=== PATIENT | male | born 2000 | race Caucasian/White ===

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

== ENCOUNTER 2021-04-17 13:02 | Emergency (ER) | payer OTHER, SELFPAY ==
[2021-04-17 13:19] VITALS: BP 129/56; PULSE 84; RESP 18; TEMP 36.8; O2SAT 99; BMI 19.5
--- NOTE | 2021-04-17 14:43 | ED_ITS ---
HPI - Back Pain/Injury General Chief Complaint: Back Pain/Injury Stated Complaint: Lower back pain Time Seen by Provider: 04/17/21 14:43 Source: patient Mode of arrival: ambulatory Limitations: no limitations History of Present Illness HPI Narrative: This is a 21-year-old male that presents to the emergency department with left-sided lower back pain that started about 2 weeks ago and has been worsening. He states he is having intermittent stabbing pain localized to his left right lower back, and at times radiating down his left leg to his knee. He states he woke up 1 day and this started, he denies trauma to the area, nothing like this has ever happened before. He states he tried taking ibuprofen, with little to no relief. He denies any urinary symptoms, denies fevers, chills, shortness of breath, chest pain, recent sick contacts, abdominal pain. He denies IV drug use. He denies recent STDs or previous STDs. However he does randomly mentioned during the interview and he wants to get STD tested, he does not state he has had any positive exposures, he also denies penile discharge, or any lesions to the area. MD elicited complaint: back pain Onset (ago): week(s) (Two weeks worse today) Timing: constant and progressively worsening Severity: moderate Similar Symptoms Previously: No Quality: sharp Location: lumbar spine and right lower back Radiation: left upper leg and left leg below the knee Exacerbating factors: movement Relieving factors: none Context: unknown Associated symptoms: denies other symptoms Work related injury: No Related Data Previous Rx's Medication Instructions Recorded cyclobenzaprine 10 mg tablet 10 mg PO Q8H PRN #10 tab 04/17/21 naproxen 500 mg tablet 500 mg PO BID PRN #10 tab 04/17/21 Allergies Allergy/AdvReac Type Severity Reaction Status Date / Time No Known Allergies Allergy Verified 04/17/21 13:18 Review of Systems Review of Systems: Constitutional : No trauma, No Weight loss, No Fever, No Chills, ENT/Mouth : No Hearing loss, No Ear Pain, No Nasal Congestion, No Sinus Pain, No Hoarseness, No sore throat, No Rhinorrhea, No Swallowing Difficulty Cardiovascular : No Chest Pain, No SOB Respiratory : No Cough, No Dyspnea Gastrointestinal : No Nausea, No Vomiting, No Diarrhea, No abdominal Pain, No Hematochezia, No Melena Genitourinary : No Dysuria, No Urinary Frequency, No Hematuria, No Urinary or Bowel Incontinence/retention Musculoskeletal : + Back pain, No neck pain, No joint stiffness, No joint swelling Skin : No Skin Lesions, No rash or signs of infection Neuro : No Weakness, No radiation, No Numbness, No Paresthesias, No headache, no loss of bowel or bladder incontinence, no saddle anesthesia, Focal weakness, No radiation Denies history of IV drug usage. Yes all other systems are reviewed and are negative [facility] Past Medical History Attestation statement: The following information was validated with the patient. Medical History Patient denies significant medical history Social History Social History Alcohol intake: never Advance Directives: No Physical Exam Vital Signs: Vital Signs: Last Vital Signs Temp 98.3 F 04/17/21 13:19 Pulse 84 04/17/21 13:19 Resp 18 04/17/21 13:19 BP 129/56 L 04/17/21 13:19 Pulse Ox 99 04/17/21 13:19 Body Mass Index 19.5 vital signs have been reviewed as normal and appeared to be correct. Blood pressure normal. Heart rate normal. Respiration rate normal. Temperature normal. Oxygen saturation normal. Appearance: Alert. Oriented X3. No acute distress. Head: Normal external exam. Normocephalic. Atraumatic. Eyes: PERRLA. EOMI. Conjunctiva and sclera normal. Eyelids normal. ENT: Pharynx normal. Uvula midline. Moist mucous membranes. Neck: Normal inspection. Neck supple. FROM. No adenopathy. No meningeal signs. CVS: Normal heart rate and rhythm. Heart sound normal. No murmurs noted. Pulses normal throughout. Respiratory: No respiratory distress. Painless inspiration. Breath sounds normal. No wheezes/rales/rhonchi noted. Chest nontender. No accessory muscle usage noted or decreased air movement noted. Abdomen: Soft and nontender. Bowel sounds normal in all 4 quadrants. No distention noted. No organomegaly noted. No visible injury noted. Back: + mild CVA tenderness to left side . +Full/ painful range of motion noted. No obvious deformities, or edema. + Mild para-spinal muscular tenderness from lumbar region to coccyx. + Full/painful ROM in back and lower extremities. 5/5 strength hip extension/flexion, abduction, adduction. Mild Lumbar pain with hip flexion against resistance. Straight leg raise test negative on right; Straight leg raise test negative on left; Reflexes normal ankle and knee bilaterally; EHL motor strength normal bilaterally. No rashes/lesion/induration/fluctuance or signs infection noted. Skin: Skin warm and dry. Normal skin color. Normal skin turgor. No rashes/lesions/lacerations noted. Extremities: No lower extremity edema. No calf tenderness noted. Extremities exhibit normal range of motion. Extremities nontender. Neuro: Oriented X 3. No motor deficit. No sensory deficit. Reflexes normal. Patient has a normal steady gait. Course Course Course Narrative: This is a 21-year-old male that presents to the emergency department with 2 weeks of worsening left lower back pain that radiates down his leg to his knee. He states that the pain is intermittent in nature, will but when it comes on it is a stabbing pain that is 10/10. He denies any urinary symptoms, chest pains, fevers, paresthesias, numbness, tingling, shortness of breath, abdominal pain. However during the interview he does state that he wants to get STD tested, he states he has not had any recent positive exposures, penile discharge, new lesions, or new sexual partners. Patient's physical exam is significant for mild painful range of motion to the hips. He has normal strength. He appears uncomfortable with ambulation, any states that at time he gets shooting pain down his left leg down to his knee. He also has tenderness to palpation the paraspinous muscles in the lumbar region, going down to the coccyx on a left-hand side. He has mild positive CVA tenderness to left hand side. Negative straight leg raise bilaterally. Based off patient's history, physical examination this is most likely musculoskeletal in nature, and does not warrant a need for CT/however he will be tested for gonorrhea and chlamydia. Any urine sample will be sent out. Plan at this time is to discharge the patient with his PCP. He be started on a muscle relaxer, for his pain and he will also be given naproxen for pain if the UA is WNL. MDM - Back Pain/Injury Medical Records Attestation: I reviewed the patient's medical records. Lab Data Attestation: I reviewed the patient's lab results. Labs: Lab Results 04/17/21 Range/Units 15:25 Urine Color YELLOW Urine Appearance HAZY Urine pH 8.0 (5.0-8.0) Ur Specific [place] 1.015 (1.005-1.025) Urine Protein NEG (NEG-TRACE) MG/DL Urine Glucose (UA) NEG (NEG) MG/DL Urine Ketones NEG (NEG) MG/DL Urine Blood NEG (NEG) Urine Nitrite NEG (NEG) Ur Leukocyte Esterase NEG (NEG) Discharge Plan Discharge Clinical Impression: Strain of lumbar region, Sciatica Patient Disposition: Home, Self-Care Instructions: Sciatica (ED), Back Pain (ED) Additional Instructions: Take medications as prescribed Follow-up with your PCP in 2 days If your test for gonorrhea and chlamydia comes back positive you will receive phone call. If not you will not receive a phone call Present to the emergency department if any new or worsening symptoms, or if you lose control of bowel/bladder, if you lose feeling in your legs, or if you dev elop abdominal pain, fevers/chills, chest pain or shortness of breath Prescriptions: New naproxen 500 mg tablet 500 mg PO BID PRN (Reason: pain) Qty: 10 RF: 0 cyclobenzaprine 10 mg tablet 10 mg PO Q8H PRN (Reason: Muscle spasm) Qty: 10 RF: 0 Stand Alone Forms: Work/School Release
[2021-04-17 15:42] LABS: Appearance Urine HAZY; Color Urine YELLOW; Glucose Urine UA NEG (NEG); Leukocyte Esterase Urine NEG (NEG); Nitrite Urine NEG (NEG); Specific Gravity - Urine 1.015 (1.005-1.025); Urine Blood NEG (NEG); Urine Ketones NEG (NEG); Urine Protein NEG (NEG-TRACE)
[2021-04-18 09:52] LABS: CT PCR NOT DETECTED (Not Detect.); NG PCR NOT DETECTED (Not Detect.)
== END 2021-04-17 16:24 | disposition home or self-care (01) ==
PROVIDERS: Physician Assistant Medical; Emergency Provider Emergency Medicine
DX: M54.42 Lumbago with sciatica, left side (principal); M79.605 Pain in left leg; Z79.899 Other long term (current) drug therapy
CPT/HCPCS: 81003; 87491; 87591; 99283; 99284

== ENCOUNTER 2021-04-22 23:11 | Emergency (ER) | payer OTHER, SELFPAY ==
[2021-04-22 23:12] VITALS: BP 118/70; PULSE 86; RESP 16; TEMP 36.9; O2SAT 98
--- NOTE | 2021-04-23 00:12 | ED.BACK ---
HPI - Back Pain/Injury General Chief Complaint: Back Pain/Injury Stated Complaint: Back pain Time Seen by Provider: 04/22/21 23:58 Source: patient Mode of arrival: ambulatory Limitations: no limitations History of Present Illness HPI Narrative: States he has history of lower back pain is having exacerbation of this or last day or 2 it did improve after being evaluated he recently. Denies any recent injury. States pain is localized to the right lower back over the paraspinous muscle region and down the buttock. He denies any abdominal pain nausea vomiting. Denies any symptoms. Denies any history of IVDA use. 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 MD elicited complaint: back pain Pertinent past history: prior back pain Severity: mild Similar Symptoms Previously: Yes Quality: aching Radiation: other (Right buttock/like) Exacerbating factors: none Relieving factors: none Associated symptoms: denies other symptoms Related Data Previous Rx's Medication Instructions Recorded cyclobenzaprine 10 mg tablet 10 mg PO Q8H PRN #10 tab 04/17/21 naproxen 500 mg tablet 500 mg PO BID PRN #10 tab 04/17/21 cyclobenzaprine 5 mg tablet 5 mg PO BID PRN #21 tab 04/23/21 naproxen 500 mg tablet 500 mg PO BID PRN #14 tab 04/23/21 Allergies Allergy/AdvReac Type Severity Reaction Status Date / Time No Known Allergies Allergy Verified 04/17/21 13:18 Review of Systems Review of Systems: Constitutional: No Weight loss, No Fever, No Chills, No Night Sweats, No Fatigue, No Malaise ENT/Mouth: No Hearing loss, No Ear Pain, No Nasal Congestion, No Sinus Pain, No Hoarseness, No sore throat, No Rhinorrhea, No Swallowing Difficulty Eyes: No Eye Pain, No Swelling, No Redness, No Foreign Body, No Discharge, No Vision Changes Cardiovascular: No Chest Pain, No SOB, No Dyspnea on Exertion, No Orthopnea, No Edema, No Palpitations Respiratory: No Cough, No Sputum, No Wheezing, No Smoke Exposure, No Dyspnea Gastrointestinal: No Nausea, No Vomiting, No Diarrhea, No Constipation, No abdominal Pain, No Hematochezia, No Melena Genitourinary: No Dysuria, No Urinary Frequency, No Hematuria, No Urinary Incontinence, No Urgency, No Flank Pain, No Urinary Flow Changes, No Hesitancy Musculoskeletal: No joint pain, No Myalgias, No Joint Swelling Skin: No Skin Lesions, No rash Neuro: No Weakness, No Numbness, No Paresthesias, No Loss of Consciousness, No Dizziness, No Headache Psych: No Social Issues Heme/Lymph: No Bruising, No Bleeding,No Lymphadenopathy Endocrine: No Polyuria, No Polydipsia, No Temperature Intolerance [facility] Past Medical History Medical History Patient denies significant medical history Social History Social History Alcohol intake: never Advance Directives: No Physical Exam Vital Signs: Vital Signs: Last Vital Signs Temp 98.5 F 04/22/21 23:12 Pulse 86 04/22/21 23:12 Resp 16 04/22/21 23:12 BP 118/70 04/22/21 23:12 Pulse Ox 98 04/22/21 23:12 Body Mass Index 20.0 Const: General: cooperative and healthy appearing; No acute distress or intoxicated appearing Nutritional Appearance: average body habitus Orientation/consciousness: patient oriented x3 HENMT: Head: Yes normal to inspection Ears: hearing grossly normal bilaterally Eyes: General: appearance normal, both eyes and all related structures Visual Read: normal visual read by confrontation Neck: Neck: Yes normal visual inspection, No positive Brudzinski's sign, No positive Kernig's sign and No tender Thyroid: Thyroid normal Chest: Chest palpation & inspection: normal inspection of the chest Resp: Effort & Inspection: normal respiratory effort Auscultation: clear to auscultation bilaterally Cardio: Jugular venous distension: no JVD Rhythm: regular rhythm Heart sounds: S1 normal heart sound present and S2 normal heart sound present GI: Inspection: Yes normal to inspection Palpation (GI): Soft to palpation, Firmness to palpation present (GI) and Tenderness to palpation present (GI) Percussion: Yes normal to percussion Auscultation: normal bowel sounds : General: Yes no CVA tenderness Back/Spine/Pelvis: Back: no CVA tenderness Pelvis: no pain with anterior-posterior compression Back/spine/pelvis image: 1. Point tenderness Skin: General skin exam: no rashes or lesions noted Neuro: General: patient oriented x3 Extrem: General: Yes normal to inspection Course Reevaluation(s) Reevaluation #1: 22-year-old male with low back pain seems to be related to strain type injury secondary to reparative the use and poor body mechanics. No low back pain red flags. Overall nontoxic appearing. He comes today requesting refill for his muscle relaxant which has worked well in the past for him. States he just needs refill does not need anything else. I advised him to participate in physical therapy go to his primary care doctor if he continues to have symptoms consider advanced imaging. Discharge Plan Discharge Clinical Impression: Strain of lumbar region Patient Disposition: Home, Self-Care Instructions: Acute Low Back Pain (ED) Additional Instructions: Warm compresses Gentle stretching Return if any concerns or symptoms Otherwise follow up with her primary care doctor as discussed Thank you Prescriptions: New cyclobenzaprine 5 mg tablet 5 mg PO BID PRN (Reason: muscle spasm) Qty: 21 RF: 0 naproxen 500 mg tablet 500 mg PO BID PRN (Reason: pain) Qty: 14 RF: 1 No Action naproxen 500 mg tablet 500 mg PO BID PRN (Reason: pain) Qty: 10 RF: 0 cyclobenzaprine 10 mg tablet 10 mg PO Q8H PRN (Reason: Muscle spasm) Qty: 10 RF: 0 Referrals: Physician,None [Primary Care Provider] - 1 week (Your primary care doctor)
== END 2021-04-23 00:56 | disposition home or self-care (01) ==
PROVIDERS: Emergency Provider Internal Medicine
DX: S39.012A Strain of muscle, fascia and tendon of lower back, initial encounter (principal); X58.XXXA Exposure to other specified factors, initial encounter; Y93.9 Activity, unspecified; Y92.9 Unspecified place or not applicable; Y99.9 Unspecified external cause status; Z79.899 Other long term (current) drug therapy
CPT/HCPCS: 99283

== ENCOUNTER 2021-07-16 17:35 | Emergency (ER) | payer OTHER, SELFPAY ==
--- NOTE | ~2021-07-16 | XR_ITS ---
EXAMINATION: XR LUMBOSACRAL SPINE CLINICAL INFORMATION: Lower back pain. COMPARISON: Lumbar spine radiographs dated 05/09/2016. TECHNIQUE: Three views of the lumbosacral spine. 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 Mild associated loss of intervertebral disc height is slightly increased. No loss of vertebral body height. No acute fracture or subluxation. No lytic or blastic osseous lesion. 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 Mild, increased loss of intervertebral disc height at L5-S1.
[2021-07-16 19:25] VITALS: BP 124/63; PULSE 91; RESP 16; TEMP 37.3; O2SAT 98; BMI 20.3
[2021-07-16 20:42] LABS: COVID-19 Test Negative (Negative); IDNOW Serial# 9DD0AD1C
--- NOTE | 2021-07-16 21:50 | ED_ITS ---
HPI - URI/Sore Throat General Chief Complaint: Upper Respiratory Symptoms Stated Complaint: flu like Time Seen by Provider: 07/16/21 21:50 Source: patient Mode of arrival: ambulatory Limitations: no limitations History of Present Illness HPI Narrative: 21-year-old male presents with multiple complaints. States have nausea, vomiting, headache, lower back pain, and would like to be tested for COVID-19. MD elicited complaint: fever, cough, sore throat and nasal congestion Onset (ago): day(s) (3) Consistency: constant Severity: mild Description of mucous: clear Able to tolerate fluids by mouth: Yes Exacerbating factors: nothing Relieving factors: nothing Context: sick contacts Associated symptoms: fever, chills, myalgias, headache, rhinorrhea, nasal congestion, sore throat, cough and other (Back pain) Treatments prior to arrival: none Related Data Previous Rx's Medication Instructions Recorded cyclobenzaprine 10 mg tablet 10 mg PO Q8H PRN #10 tab 04/17/21 naproxen 500 mg tablet 500 mg PO BID PRN #10 tab 04/17/21 cyclobenzaprine 5 mg tablet 5 mg PO BID PRN #21 tab 04/23/21 naproxen 500 mg tablet 500 mg PO BID PRN #14 tab 04/23/21 cyclobenzaprine 10 mg tablet 10 mg PO TID PRN #20 tab 07/16/21 Allergies Allergy/AdvReac Type Severity Reaction Status Date / Time No Known Allergies Allergy Verified 04/17/21 13:18 Review of Systems Review of Systems: Constitutional: Positive subjective Fever, positive Chills ENT/Mouth: No Ear Pain, No Hoarseness, positive sore throat Eyes: No Eye Pain, No Swelling, No Redness, No Foreign Body Cardiovascular: No Chest Pain, No SOB Respiratory: Positive Cough, No Dyspnea Gastrointestinal: Positive Nausea, positive Vomiting, No Diarrhea, No abdominal Pain Genitourinary: No Dysuria, No Hematuria Musculoskeletal: positive joint pain, positive Myalgias, No Joint Swelling Skin: No Skin lacerations, No rash Neuro: No Weakness, No Numbness, No Paresthesias, No Loss of Consciousness, No Dizziness, No Headache Psych: No Anxiety/Panic, No Depression Heme/Lymph: no easy bruising, no Lymphadenopathy Endocrine: No Polyuria, No Polydipsia Yes all other systems are reviewed and are negative [facility] Past Medical History Attestation statement: The following information was validated with the patient. Source: old records reviewed Medical History Patient denies significant medical history Social History Social History Alcohol intake: never Advance Directives: No Advance Directives Information Provided: No Physical Exam Vital Signs: Vital Signs: Last Vital Signs Temp 99.1 F 07/16/21 19:25 Pulse 91 07/16/21 19:25 Resp 16 07/16/21 19:25 BP 124/63 07/16/21 19:25 Pulse Ox 98 07/16/21 19:25 BMI result Body Mass Index 20.3 Appearance: Alert. Oriented X3. No acute distress. Eyes: Pupils equal, round and reactive to light. Sclera nonicteric. ENT: Pharynx normal. Moist mucous membranes. Neck: Normal inspection. Neck supple. No cervical lymphadenopathy. No nuchal rigidity. CVS: Normal heart rate and rhythm. Pulses normal. Respiratory: No respiratory distress. Breath sounds normal. Abdomen: Soft and nontender. Skin: Skin warm and dry. Normal skin color. Normal skin turgor. Extremities: No lower extremity edema. Gait well-balanced well coordinated. Neuro: No motor deficit. No sensory deficit. Cranial nerves 2-12 intact Course Course Course Narrative: 21-year-old male presents with 1st complained of upper respiratory symptoms consistent with COVID. Was requesting a COVID test, COVID test was negative. When I give patient his COVID test results, stated that he had lower back pain, back pain started several months ago, does not report any traumatic injury or repetitive motions. Does not report any symptoms indicating cauda equina. Will order urinalysis and lumbar spine x-ray. Urinalysis and lumbar spine x-ray are negative for acute findings. X-ray shows spondylolysis which is consistent with prior findings. Once patient was told x- ray results, stated that he had headache and eye pain. Patient does not have any neurological findings at this time. Gait well-balanced well coordinated. Neurovascularly intact. No pain on extraocular movements. Sclera nonicteric. Patient was advised to follow-up with primary care physician, stated he does not have a primary. I did refer to [facility] as well as pain management for chronic lumbar back pain. Patient does understand that he may need to follow-up with physical therapy for prolonged treatment. MDM - URI/Sore Throat Differential Diagnosis Differential diagnosis: Likely upper respiratory infection, sinusitis and viral infection Medical Records Attestation: I reviewed the patient's medical records. Lab Data Attestation: I reviewed the patient's lab results. Labs: Lab Results 07/16/21 07/16/21 07/16/21 Range/Units 20:17 22:37 22:37 Urine Color YELLOW Urine Appearance CLEAR Urine pH 6.0 (5.0-8.0) Ur Specific [place] 1.025 (1.005-1.025) Urine Protein TRACE (NEG-TRACE) MG/DL Urine Glucose (UA) NEG (NEG) MG/DL Urine Ketones 15 (NEG) MG/DL Urine Blood NEG (NEG) Urine Nitrite NEG (NEG) Ur Leukocyte Esterase NEG (NEG) Urine Opiates Screen Not Detected (Not Detect) Urine Fentanyl Screen Not Detected (Not Detect) Ur Barbiturates Screen Not Detected (Not Detect) Ur Phencyclidine Scrn Not Detected (Not Detect) Ur Amphetamines Screen Not Detected (Not Detect) U Benzodiazepines Scrn Not Detected (Not Detect) Urine Cocaine Screen Not Detected (Not Detect) U Marijuana (THC) Screen POSITIVE H (Not Detect) COVID-19 ([facility]) Negative (Negative) COVID-19 Clin Com See Note Imaging Data Lumbar spine: Attestation: I personally reviewed and interpreted this imaging study as follows: Radiologist's impression: EXAMINATION: XR LUMBOSACRAL SPINE CLINICAL INFORMATION: Lower back pain. COMPARISON: Lumbar spine radiographs dated 05/09/2016. TECHNIQUE: Three views of the lumbosacral spine. 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 Mild associated loss of intervertebral disc height is slightly increased. No loss of vertebral body height. No acute fracture or subluxation. No lytic or blastic osseous lesion. 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 Mild, increased loss of intervertebral disc height at L5-S1. Discharge Plan Discharge Clinical Impression: Viral infection, Spondylolysis Back pain Qualifiers: Back pain location: low back pain Chronicity: chronic Back pain laterality: unspecified Sciatica presence: with sciatica Sciatica laterality: sciatica laterality unspecified Qualified Code(s): M54.40 - Lumbago with sciatica, unspecified side Headache Qualifiers: Headache type: unspecified Headache chronicity pattern: episodic headache Intractability: intractable Qualified Code(s): R51.9 - Headache, unspecified Patient Disposition: Home, Self-Care Instructions: Viral Syndrome (ED), Cold Symptoms (ED), Chronic Back Pain (DC), General Headache (ED) Additional Instructions: You were evaluated for viral syndrome. Please drink plenty of fluids. Your COVID test was negative. You reported chronic lower back pain. Lumbar x-ray indicates spondylolysis. I have referred you to pain management. Please call and request an appointment. I have also referred you to [facility]. You must follow-up and obtain primary care physician for chronic pain management. Thank you for choosing this emergency department for evaluation. Please follow-up with primary care physician as needed. Return to the emergency department for any new, concerning, or worsening symptoms. Prescriptions: New cyclobenzaprine 10 mg tablet 10 mg PO TID PRN (Reason: muscle spasm) Qty: 20 RF: 0 No Action naproxen 500 mg tablet 500 mg PO BID PRN (Reason: pain) Qty: 10 RF: 0 cyclobenzaprine 10 mg tablet 10 mg PO Q8H PRN (Reason: Muscle spasm) Qty: 10 RF: 0 cyclobenzaprine 5 mg tablet 5 mg PO BID PRN (Reason: muscle spasm) Qty: 21 RF: 0 naproxen 500 mg tablet 500 mg PO BID PRN (Reason: pain) Qty: 14 RF: 1 [facility] - [facility] days [facility] - 2 days Storm Rico MD [Physician] - 2 days (Spondylolysis L5 S1) Stand Alone Forms: Work/School Release Interventions: ED Discharge Assessment Last Done: 07/16/21 23:39
[2021-07-16] MEDS: Ketorolac Tromethamine 60 MG/2 ML VIAL IM (22:52)
[2021-07-16] MEDS: Cyclobenzaprine HCl 10 MG TABLET PO (22:53)
[2021-07-16 22:58] LABS: Amphetamine Screen Urine Not Detected (Not Detect); Appearance Urine CLEAR; Barbiturates, Urine Not Detected (Not Detect); Benzodiazepines Screen Urine Not Detected (Not Detect); Cannabinoid Screen Urine POSITIVE (Not Detect); Cocaine Screen Urine Not Detected (Not Detect); Color Urine YELLOW; Fentanyl, urine Not Detected (Not Detect); Glucose Urine UA NEG (NEG); Leukocyte Esterase Urine NEG (NEG); Nitrite Urine NEG (NEG); Opiate Screen Urine Not Detected (Not Detect); Phencyclidine Screen Urine Not Detected (Not Detect); Specific Gravity - Urine 1.025 (1.005-1.025); Urine Blood NEG (NEG); Urine Ketones 15 MG/DL (NEG); Urine Protein TRACE MG/DL (NEG-TRACE)
== END 2021-07-16 23:40 | disposition home or self-care (01) ==
PROVIDERS: Nurse Practitioner Family; Emergency Provider Emergency Medicine
DX: B34.9 Viral infection, unspecified (principal); Z20.822 Contact with and (suspected) exposure to COVID-19; R51.9 Headache, unspecified; M47.817 Spondylosis without myelopathy or radiculopathy, lumbosacral region; M54.40 Lumbago with sciatica, unspecified side; F12.90 Cannabis use, unspecified, uncomplicated
CPT/HCPCS: 36415; 72100; 80307; 81003; 87635; 96372; 99284; J1885

== ENCOUNTER 2024-11-24 10:33 | Emergency (ER) | payer SELFPAY ==
[2024-11-24 10:46] VITALS: BP 114/70; PULSE 85; RESP 19; TEMP 36.7; O2SAT 98; BMI 20.3
--- NOTE | 2024-11-24 11:37 | ED.GENADULT ---
HPI - General Adult General Chief complaint: Eye Problems Stated complaint: R eye irritation Time Seen by Provider: 11/24/24 11:37 Source: patient Mode of arrival: ambulatory Limitations: no limitations History of Present Illness ED Provider: Aidee Fuentes PA-C HPI narrative: 24 year-old male without significant PMHx presents to the ED due to bilateral eye irritation. He states the irritation began approximately 2 days ago and he woke up with yellowing crusting of bilateral eyes that progressed into itching, watering and irritation. He reports using ibuprofen and Visine drops for pain management, and reports an increase in rubbing his eyes due to itching. Additionally, he states he has been experiencing an irritated and sore throat during this duration of time. He denies fever, visual changes, headache, rashes, chest pain, SOB. MD complaint: eye irritation Onset (ago): day(s) (3) Location: eyes (bilateral) Severity: mild Pain Consistency: constant Relieving factors: none Exacerbating factors: none Associated symptoms: other (sore throat) Treatments prior to arrival: NSAID (ibuprofen) and other (Visine eye drops) Related Data Previous Rx's ?Medication ?Instructions ?Recorded cyclobenzaprine 10 mg tablet 10 mg PO Q8H PRN Muscle spasm #10 04/17/21 tabs naproxen 500 mg tablet 500 mg PO BID PRN pain #10 tabs 04/17/21 cyclobenzaprine 5 mg tablet 5 mg PO BID PRN muscle spasm #21 04/23/21 tabs naproxen 500 mg tablet 500 mg PO BID PRN pain #14 tabs 04/23/21 cyclobenzaprine 10 mg tablet 10 mg PO TID PRN muscle spasm #20 07/16/21 tabs loratadine 10 mg tablet 10 mg PO DAILY #14 tabs 11/24/24 ofloxacin 0.3 % eye drops See Rx Instructions ophthalmic 11/24/24 (eye) .COMPLEX #10 mL Allergies Allergy/AdvReac Type Severity Reaction Status Date / Time No Known Allergies Allergy Verified 11/24/24 10:47 Review of Systems Constitutional: Constitutional: Reports no additional constitutional complaints, Denies chills, Denies fever(s) and Denies night sweats Eyes: Eyes: Reports as per HPI, Denies blurry vision, Denies change in vision, Denies diplopia, Reports eye discharge (yellow crusting), Reports irritation, Reports itchy eyes, Denies loss of vision and Reports eye pain ENT: Denies dizziness and Reports sore throat Cardiovascular: Cardiovascular: Reports no additional cardiovascular complaints, Denies chest pain, Denies lightheadedness, Denies Loss of Consciousness and Denies dyspnea Respiratory: Respiratory: Reports no additional respiratory complaints and Denies dyspnea Gastrointestinal: Gastrointestinal: Reports no additional gastrointestinal complaints, Denies abdominal pain, Denies melena, Denies hematochezia, Denies change in bowel habits and Denies change in stool character Genitourinary: Genitourinary: Reports no additional male genitourinary complaints, Denies hematuria, Denies oliguria, Denies difficulty urinating, Denies dysuria, Denies urinary frequency, Denies urinary hesitancy, Denies urinary incontinence and Denies urinary urgency Musculoskeletal: Musculoskeletal: Reports no additional musculoskeletal complaints, Denies numbness and Denies tingling Neurologic: Denies dizziness, Denies loss of vision, Denies numbness and Denies tingling Psychiatric: Psychiatric: Reports no additional psychiatric complaints Endocrine: Endocrine: Reports no additional endocrine complaints Hematologic/Lymphatic: Hematologic/Lymphatic: Reports no additional hematologic/lymphatic complaints Allergic/Immunologic: Allergic/Immunologic: Reports no additional allergic/immunologic complaints and Reports itchy eyes PMFSH Past Medical History Attestation statement: The following information was validated with the patient. Source: old records reviewed and nursing notes reviewed Medical History Patient denies significant medical history Social History Social History Alcohol intake: never Advance Directives: No Advance Directives Information Provided: Yes Do you have a plan to hurt others: No Plan Physical Exam ED Vital Signs: Vital Signs - 24 hr 11/24/24 10:46 11/24/24 13:14 Temperature 98.1 F 98.1 F Pulse Rate 85 85 Respiratory Rate 19 19 Blood Pressure 114/70 114/70 Pulse Oximetry 98 98 Oxygen Delivery Method Room Air Room Air BMI result Body Mass Index 20.3 Const General: cooperative, no acute distress, alert and awake Nutritional Appearance: well nourished Orientation/consciousness: patient oriented x3 HENMT Head: Yes normal to inspection and Yes atraumatic Ears: hearing grossly normal bilaterally and external ears normal General nose exam: Normal external nose present, no nasal discharge noted and no epistaxis Face and sinus: Yes normal facial exam, No abrasion and No laceration Mouth: Normal oral and palatal mucosa present, no drooling and no muffled voice Eyes Periorbital: periorbital findings normal Eyelids: Yes eyelids normal Conjunctivae: conjunctival abnormal right subconjunctival hemorrhage (at the 9 o'clock position) and left subconjunctival hemorrhage (at the 12 o'clock position) Sclerae: sclerae normal Pupils: Equal, round and reactive pupils present EOM: EOMs intact bilaterally Neck Neck: Yes normal visual inspection, Yes full ROM and Yes no lymphadenopathy Resp Effort & Inspection: normal respiratory effort and able to speak in complete sentences Skin General skin exam: no rashes or lesions noted Neuro General: patient oriented x3, moves all extremities and CN's II-XI intact bilaterally Cranial nerves: Yes Equal, round and reactive pupils present Cognition (Neuro): normal cognition Extrem General: Yes normal to inspection, Yes full ROM and Yes capillary refill normal Psych Appearance: grossly normal Mental Status: mental status grossly normal Affect: normal affect Attitude: cooperative Thought process: Normal thought process present Thought content: Normal thought content present Insight: Good insight present (Psych) Medical Decision Making Medical Decision Making MDM Narrative: 24 year-old male without significant PMHx presents to the ED due to bilateral eye irritation. Patients vital signs stable, in no acute distress, and is non-toxic appearing. On physical exam there are bilateral subconjunctival hemorrhages as noted in the physical exam portion of this note. Patient's strep, COVID-19, influenza, and RSV tests were negative. Patient's clinical presentation is most consistent with allergic conjunctivitis and bilateral subconjunctival hemorrhage secondary to excessive rubbing. However, given his crusting and duration of symptoms, will cover with antibiotic drops as well as a PO anti-histamine. I explained my physical exam findings as well as all test results to the patient. I answered all questions asked by the patient. I stressed the importance of the patient taking his medication as directed (either prescribed or as the over the counter packaging recommends). I stressed the importance of the patient following up with his primary care provider and an physician relations specialist. I stressed the importance of the patient returning to the emergency department immediately if his symptoms were to worsen or if he were to develop any dizziness, shortness of breath, difficulty breathing, chest pain, blurry vision, loss of vision, nausea, vomiting, abdominal pain, fever, chills, back pain, or any other complaints. Patient verbalized agreement and understanding with this treatment plan and discharge. Differential Diagnosis Differential Diagnoses: The differential diagnosis associated with the presentation includes Bacterial conjunctivitis Allergic conjunctivitis Viral conjunctivitis COVID-19 Influenza RSV Admission/Observation Consideration of admission/observation: Escalation of care including admission/observation considered Patient would have been admitted to the hospital had his work up had any findings where hospital admission was appropriate and his clinical presentation warranted hospital admission. Lab Data MDM Lab Attestation statement: I reviewed the patient's lab results. My interpretation of these studies and their corresponding values is that they are grossly normal. Labs: Lab Results 11/24/24 Range/Units 12:00 Influenza Type A (PCR) NEGATIVE (Negative) Influenza Type B (PCR) NEGATIVE (Negative) RSV RNA Qual (PCR) NEGATIVE (Negative) SARS-CoV-2 RNA (RT-PCR) NEGATIVE (Negative) S. pyogenes GrpA BEHZAD Negative (Negative) Prescription Management I considered prescription management with: Antibiotic (given clinical presentation and duration of symptoms - patient started on antibiotic drops) Discharge Plan Discharge Clinical Impression: Acute allergic conjunctivitis, Subconjunctival hemorrhage Patient Disposition: Home, Self-Care Instructions: Subconjunctival Hemorrhage (ED), Conjunctivitis (ED) Additional Instructions: STOP taking ibuprofen and using the visine. Please use the antibiotic drops as prescribed. Please take the antihistamine as directed. AVOID rubbing your eyes. Follow up with your primary care provider and an physician relations specialist. Return to the emergency department immediately if your symptoms worsen or if you develop any numbness, tingling, dizziness, shortness of breath, difficulty breathing, chest pain, blurry vision, loss of vision, nausea, vomiting, abdominal pain, fever, chills, back pain, or any other complaints. Please see the information below about our Patient Portal. If you are not yet enrolled in the [facility] Patient Portal, you will receive an enrollment email invitation following your visit to any [facility] [place]. You may also self-enroll in the Patient Portal by visiting our website: [email or web address] The following information is required to access the Patient Portal: - [place] [facility] [place] - Your personal home email address (must match what is in your electronic medical record, Registration staff can assist with this) - Name - Date of Capabilities of the Patient Portal: - Message some providers - View upcoming appointments - Access your health summary, medical history, and visit history - View current conditions and allergies - View procedure and lab results - View your medications, including guidelines, side effects, and precautions - Complete pre-appointment questionnaires requested by your provider - Ready summary reports of your office visits and procedures To access the Patient Portal Mobile Za, follow these directions: - Search [employer] in the Za Store or Google Play Store - Download the Za - Search for [facility] - Enter your login/password Prescriptions: New ofloxacin 0.3 % drops See Rx Instructions .ROUTE .COMPLEX Qty: 10 0RF Rx Instructions: put 1-2 drps into affected eye(s) every 2-4 h x 2 days, then 1-2 drps 4 times/day days 3-7 loratadine 10 mg tablet 10 mg PO DAILY Qty: 14 0RF No Action naproxen 500 mg tablet 500 mg PO BID PRN (Reason: pain) Qty: 10 0RF cyclobenzaprine 10 mg tablet 10 mg PO Q8H PRN (Reason: Muscle spasm) Qty: 10 0RF cyclobenzaprine 5 mg tablet 5 mg PO BID PRN (Reason: muscle spasm) Qty: 21 0RF naproxen 500 mg tablet 500 mg PO BID PRN (Reason: pain) Qty: 14 1RF cyclobenzaprine 10 mg tablet 10 mg PO TID PRN (Reason: muscle spasm) Qty: 20 0RF Referrals: [facility] [Provider Group] (Call to establish and follow up with a primary care provider. If you already have a primary care provider, please follow up with them.) [facility], [facility] [Provider Group] (Call to establish and follow up with a primary care provider. If you already have a primary care provider, please follow up with them.) [facility], [facility] [Provider Group] (Call to establish and follow up with a primary care provider. If you already have a primary care provider, please follow up with them.) [facility] [place], [facility] [Provider Group] (Call to establish and follow up with a primary care provider. If you already have a primary care provider, please follow up with them.) [facility] [[facility] Group] (Call to establish and follow up with a primary care provider. If you already have a primary care provider, please follow up with them.) [facility] [Physician] - (Call to establish and follow up with an physician relations specialist. ) Stand Alone Forms: Work/School Release Interventions: ED Discharge Assessment Last Done: 11/24/24 13:14 Discharge Date/Time: 11/24/24 13:17 Print Language: Venezuelan
[2024-11-24 12:20] LABS: IDNOW Serial# 55D5AD1C; Strep A Nucleic Acid Negative (Negative)
[2024-11-24 12:56] LABS: Influenza A PCR NEGATIVE (Negative); Influenza B PCR NEGATIVE (Negative); Resp Syncy Virus RNA Qual PCR NEGATIVE (Negative); SARS COV2 PCR INHOUSE NEGATIVE (Negative)
[2024-11-24 13:14] VITALS: BP 114/70; PULSE 85; RESP 19; TEMP 36.7; O2SAT 98
--- OUTSIDE RECORDS SUMMARY | 2024-11-24 13:28 | XMS_ITS | Encounter Summary ---
Author Organization [facility] Address [address] [place] [id number] Phone Care Team Providers Care Manager Of Manufacturing Name Role Phone Rachael Arriaza MD Primary Care Provider [phone] Encounter Details Date Type Department Care Team (Late st Contact Info) Description 05/10/2016 Documentation EM Family Medicine [address] [place] [address] Family Medicine, Physician [address] [place], [place] [id number] Social History Tobacco Use Types Packs/Day Years Used Date Smoking Tobacco: Never Comments:Never smoker Sex and Gender Information Value Date Recorded Sex Assigned at Not on file Legal Sex Male 5:03 PM EDT Gender Identity Not on file Sexual Orientation Not on file documented as of this encounter Plan of Treatment Not on file documented as of this encounter Visit Diagnoses Not on filedocumented in this encounter Care Teams Manager Of Manufacturing Relationship Specialty Start Date End Date Rachael Arriaza MD [address] [place] [address] [place] [id number] PCP - General 03/07/17 01/01/23 documented as of this encounter
--- OUTSIDE RECORDS SUMMARY | 2024-11-24 13:28 | XMS_ITS | Encounter Summary ---
Author Organization [facility] Address [address] [place] [address] Phone Care Team Providers Care Warehouse Trainer Name Role Phone Rachael Arriaza MD Primary Care Provider [phone] Encounter Details Date Type Department Care Team (Late st Contact Info) Description 05/13/2013 Documentation EM Family Medicine [address] [place] [address] Family Medicine, Physician [address] [place] [address] Social History Tobacco Use Types Packs/Day Years Used Date Smoking Tobacco: Never Assessed Sex and Gender Information Value Date Recorded Sex Assigned at Not on file Legal Sex Male 5:03 PM EDT Gender Identity Not on file Sexual Orientation Not on file documented as of this encounter Plan of Treatment Not on file documented as of this encounter Visit Diagnoses Not on filedocumented in this encounter Care Teams Warehouse Trainer Relationship Specialty Start Date End Date Rachael Arriaza MD [address] [place] [address] [place] [address] PCP - General 03/07/17 01/01/23 documented as of this encounter
--- OUTSIDE RECORDS SUMMARY | 2024-11-24 13:28 | XMS_ITS | Encounter Summary ---
Author Organization [facility] Address [address] [place] [address] Phone Care Team Providers Care Space Physicist Name Role Phone Rachael Arriaza MD Primary Care Provider [phone] Encounter Details Date Type Department Care Team (Late st Contact Info) Description 06/21/2014 Documentation EM Family Medicine [address] [place] [address] Family Medicine, Physician [address] [place], [place] [id number] Social History Tobacco Use Types Packs/Day Years [...] on filedocumented in this encounter Care Teams Space Physicist Relationship Specialty Start Date End Date Rachael Arriaza MD [address] [place] [address] [place] [address] PCP - General 03/07/17 01/01/23 documented as of this encounter
--- OUTSIDE RECORDS SUMMARY | 2024-11-24 13:28 | XMS_ITS | Clinical Summary ---
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 Also the psychologist felt Pt met criteria for ADHD. Speech eval shows mod expressive langauge delays & mild receptive language delays. Pt has a mild lisp. Pt's preferred language was Sami though he lives in a [place] Speaking home tried concerta but did not like & stopped Low vision, both eyes 11/04/2017 Overview (11/04/2017): has glasses but won't wear Autism spectrum disorder 10/09/2009 Immunizations Immunization Administration Dates Next Due DTaP 5 04/02/2005, 3,2001, 001,2001 H1N1 07/31/2009 HPV Vaccine 9 Valent 05/30/2015 HPV, Quadrivalent 05/26/2014,11/04/2012 Hep A, ped/adol 05/30/2015,05/26/2014 Hep B, ped/adol 2001,2001,2001 Hib (HbOC) 07/12/2002, 2,2001, 001 IPV 04/02/2005, 2,2001, 001 Influenza Split 11/04/2012,10/01/2010 Influenza, injectable, quadrivalent 05/30/2015,1 Influenza, injectable, trivalent 07/31/2009,06/27,07/01/2007 MMR 04/02/2005,07/12/2002 Meningococcal Conj (Menactra) MCV4P 11/04/2012 Pneumococcal Conjugate 2001,2001, Tdap 11/04/2012 Varicella 07/01/2007,07/12/2002 Family History Relation Name Status Comments Brother Alive Brother: CHARLIE, A DD Father Alive Father: Alive a nd well Mother Alive Mother: Alive a nd well Other Uncle: Seizure disorder Social History Tobacco Use Types Packs/Day Years Used Date Smoking Tobacco: Never Comments:Never smoker Sex and Gender Information Value Date Recorded Sex Assigned at Not on file Legal Sex Male 5:03 PM EDT Gender Identity Not on file Sexual Orientation Not on file Last Filed Vital Signs Vital Sign Reading Time Taken Comments Blood Pressure 102/62 07/10/2015 12:00 AM EST Pulse 88 05/30/2015 12:00 AM EST Temperature 36.6 ??C (97.8 ??F) 07/10/2015 12:[address] Respiratory Rate - - Oxygen Saturation - - Inhaled Oxygen Concentration - - Weight 629 kg (1387 lb 9.6 oz) 07/10/2015 12:00 AM EST Height 169.9 cm (5' 6.9 ) 07/10/2015 12:00 AM ES T Body Mass Index 217.97 07/10/2015 12:00 AM EST Plan of Treatment Health Maintenance Due Date Last Done Comments Men B Vaccine (1 of 2 - Standard) 2017 DTaP,Tdap,and Td Vaccines (7 - Td or Tdap) 11/04/2022 11/04/2012, 04/02/2005, 03/30/2003, Additional history exists Influenza Vaccines (#1) 2024 05/30/20 15, 05/26/2014, 11/04/2012, Additional history exists COVID-19 Vaccine (1 - 2023- season) 2024 Pneumococcal Vaccine Aged Out 2001, 2001, 2001 No longer eligible based on patient's age to complete this topic Hepatitis B Vaccines Completed 2001, 2001, 2001 HIB Vaccines Completed 07/12/2002, 08/29, 2001, Additional history exists IPV Vaccines Completed 04/02/2005, 06/27, 2001, Additional history exists MMR Vaccines Completed 04/02/2005, 07/12/2002 Varicella Vaccines Completed 07/01/2007, 07/12/2002 Meningococcal Vaccine Aged Out 11/04/2012 No mikey kevin eligible based on patient's age to complete this topic HPV Vaccines Completed 05/30/2015, 04/29, 11/04/2012 Hepatitis A Vaccines Completed 05/30/2015, 05/26/20 14 Insurance [facility] NON [facility]
--- OUTSIDE RECORDS SUMMARY | 2024-11-24 13:28 | XMS_ITS | Encounter Summary ---
Author Organization [facility] Address [address] [place] [address] Phone Care Team Providers Care Contract Officer Name Role Phone Rachael Arriaza MD Primary Care Provider [phone] Encounter Details Date Type Department Care Team (Late st Contact Info) Description 03/13/2017 Conversion Encounter [facility] [place] [address] [place] [address] Social History Tobacco Use Types Packs/Day Years [...] on filedocumented in this encounter Care Teams Contract Officer Relationship Specialty Start Date End Date Rachael Arriaza MD [address] [place] [address] PCP - General 03/07/17 01/01/23 documented as of this encounter
== END 2024-11-24 13:17 | disposition home or self-care (01) ==
PROVIDERS: Physician Assistant Medical; Emergency Provider Emergency Medicine
DX: H10.33 Unspecified acute conjunctivitis, bilateral (principal); H11.33 Conjunctival hemorrhage, bilateral; Z03.818 Encounter for observation for suspected exposure to other biological agents ruled out
CPT/HCPCS: 0241U; 87651; 99282; 99283

== ENCOUNTER 2025-06-16 20:46 | Emergency (ER) | payer SELFPAY ==
[2025-06-16 20:48] VITALS: BP 119/63; PULSE 96; RESP 18; O2SAT 98; BMI 21.6
--- OUTSIDE RECORDS SUMMARY | 2025-06-16 21:10 | XMS_ITS | Clinical Summary ---
Author Organization [facility] Address [address] [place] [address] Phone Care Team Providers Care State Epidemiologist Name Role Phone Unavailable Primary Care Provider [...] a mild lisp. Pt's preferred language was Venezuelan though he lives in a Polish Speaking home tried concerta but did not [...] 88 05/30/2015 12:00 AM EST Temperature 36.6 C (97.8 F) 07/10/2015 12:00 AM EST Respiratory Rate - - Oxygen Saturation - - Inhaled Oxygen Concentration - - Weight 629 kg (1387 lb 9.6 oz) 07/10/2015 12:00 AM EST Height 169.9 cm (5' 6.9 ) 07/10/2015 12:00 AM ES T Body Mass Index 217.97 07/10/2015 12:00 AM EST Plan of Treatment Health Maintenance Due Date Last Done Comments DTaP,Tdap,and Td Vaccines (7 - Td or Tdap) 11/04/2022 11/04/2012, 04/02/2005, 03/30/2003, Additional history exists Influenza Vaccines (#1) 2025 05/30/20 15, 05/26/2014, 11/04/2012, Additional history exists COVID-19 Vaccine ( season) 2025 Pneumococcal Vaccine Aged Out 2001, 2001, 2001 [...] Hepatitis A Vaccines Completed 05/30/2015, 05/26/20 14 Men B Vaccine Aged Out No longer elig ible based on patient's age to complete this topic Insurance [facility] NON [facility]
--- OUTSIDE RECORDS SUMMARY | 2025-06-16 21:10 | XMS_ITS | Encounter Summary ---
Author Organization [facility] Address [address] [place] [address] Phone Care Team Providers Care Money Market Dealer Name Role Phone Rachael Arriaza MD Primary Care Provider [phone] Encounter Details Date Type Department Care Team (Late st Contact Info) Description 05/10/2016 Documentation EM Family Medicine [address] [place] [address] Family Medicine, Physician [address] [place], [place] [id number] Social History Tobacco Use Types Packs/Day Years [...] on filedocumented in this encounter Care Teams Money Market Dealer Relationship Specialty Start Date End Date Rachael Arriaza MD [address] [place] [address] [place] [address] PCP - General 03/07/17 01/01/23 documented as of this encounter
--- OUTSIDE RECORDS SUMMARY | 2025-06-16 21:10 | XMS_ITS | Encounter Summary ---
Author Organization [facility] Address [address] [place] [address] Phone Care Team Providers Care Police Crime Scene Technician Name Role Phone Rachael Arriaza MD Primary Care Provider [phone] Encounter Details Date Type Department Care Team (Late st Contact Info) Description 06/21/2014 Documentation EM Family Medicine [address] [place] [address] Family Medicine, Physician [address] [place], [place] [id number] Social History Tobacco Use Types Packs/Day Years [...] on filedocumented in this encounter Care Teams Police Crime Scene Technician Relationship Specialty Start Date End Date Rachael Arriaza MD [address] [place] [address] [place] [address] PCP - General 03/07/17 01/01/23 documented as of this encounter
--- OUTSIDE RECORDS SUMMARY | 2025-06-16 21:10 | XMS_ITS | Encounter Summary ---
Author Organization [facility] Address [address] [place] [address] Phone Care Team Providers Care Requisition Approver Name Role Phone Rachael Arriaza MD Primary Care Provider Encounter Details Date Type Department Care Team (Late st Contact Info) Description 03/13/2017 Conversion Encounter [facility] [place] [address] [place] [address] Social History Tobacco Use Types Packs/Day Years [...] on filedocumented in this encounter Care Teams Requisition Approver Relationship Specialty Start Date End Date Rachael Arriaza MD [address] [place] [address] PCP - General 03/07/17 01/01/23 documented as of this encounter
--- OUTSIDE RECORDS SUMMARY | 2025-06-16 21:10 | XMS_ITS | Encounter Summary ---
Author Organization [facility] Address [address] [place] [address] Phone Care Team Providers Care Windows 7 Deployment Lead Name Role Phone Rachael Arriaza MD Primary Care Provider [phone] Encounter Details Date Type Department Care Team (Late st Contact Info) Description 05/13/2013 Documentation EM Family Medicine [address] [place] [address] Family Medicine, Physician [address] [place] [address] Social History Tobacco Use Types Packs/Day Years [...] on filedocumented in this encounter Care Teams Windows 7 Deployment Lead Relationship Specialty Start Date End Date Rachael Arriaza MD [address] [place] [address] [place] [address] PCP - General 03/07/17 01/01/23 documented as of this encounter
[2025-06-16 22:30] VITALS: BP 114/97; PULSE 75; RESP 16; TEMP 36.7; O2SAT 97
== END 2025-06-17 01:09 | disposition left against medical advice (07) ==
PROVIDERS: Emergency Provider Emergency Medicine
DX: Z04.1 Encounter for examination and observation following transport accident (principal)
CPT/HCPCS: 99281; 99283